=== PATIENT | male | born 1970 | race Caucasian/White ===

== ENCOUNTER 2017-06-17 01:52 | Emergency (ER) | payer MEDICAID, SELFPAY ==
--- NOTE | 2017-06-17 02:04 | XR_ITS ---
XR chest 2V HISTORY: ITS.REASON: chest pain ORDERING PHYSICIAN: Stephen Sandoval MD PATIENT AGE: 47 years COMPARISON: 12/22/2014 FINDINGS: The cardiomediastinal silhouette and pulmonary vascularity are within normal limits. There are old left-sided rib fractures with deformity of the chest and bone plate over the anterior aspect of the left fourth and fifth ribs.. No acute bony abnormalities. IMPRESSION: Old left-sided rib fractures with postsurgical change. No acute finding
[2017-06-17 02:25] VITALS: BP 208/113; PULSE 78; RESP 16; TEMP 36.6; O2SAT 95; BMI 29.0
[2017-06-17 02:37] LABS: Basophils # 0.1 K/mm3 (0-0.2); Basophils % 0.4 % (0.1-2.0); Eosinophils # 0.2 K/mm3 (0.0-0.4); Eosinophils % 1.5 % (0.1-12.0); Hemoglobin 14.4 g/dL (14.1-18.0); Lymphocytes # 1.3 K/mm3 (0.7-4.5); Lymphocytes % 8.3 K/mm3 (10-50); Mean Corpuscular HGB Conc 33.6 g/dL (31.8-35.4); Mean Corpuscular Hemoglobin 30.4 pg (27.0-31.2); Mean Corpuscular Volume 90.5 fl (80-94); Mean Platelet Volume 7.9 fl (7.4-10.4); Monocytes # 0.9 K/mm3 (0.1-1.0); Neutrophils # 13.1 K/mm3 (1.8-7.8); Neutrophils % 83.8 % (37.0-80.0); Platelet Count 241 K/mm3 (142-424); Red Blood Count 4.75 M/mm3 (4.60-6.20); Red Cell Distribution Width 12.9 % (11.5-17.5); White Blood Count 15.7 K/mm3 (4.8-10.8)
[2017-06-17 02:39] LABS: MANUAL DIFFERENTIAL MANUAL DIFFERENTIAL (MANUAL DIFF)
[2017-06-17 02:55] LABS: Microscopic, Urine URINE MICROSCOPIC (MICROSCOPIC)
[2017-06-17 02:58] LABS: Alanine Aminotransferase 26 U/L (12-78); Albumin Level 3.1 gm/dL (3.4-5.0); Albumin/Globulin Ratio 0.7 (1.1-1.8); Alkaline Phosphatase 124 U/L (46-116); Anion Gap 14.9 mEq/L (5-15); Aspartate Amino Transferase 13 U/L (15-37); Bilirubin,Total 0.3 mg/dL (0.2-1.0); Blood Urea Nitrogen 18 mg/dL (7-18); Calcium 9.2 mg/dL (8.5-10.1); Carbon Dioxide 26 mmol/L (21.0-32.0); Chloride 105 mmol/L (98-107); Creatinine Clearance Estimated 124 mL/min (0-300); Creatinine,Serum 1.04 mg/dL (0.70-1.30); Estimated Glomerular Filt Rate 77 ml/min (>60); GFR (African American) 93 ML/MIN (>60); Globulin 4.7 gm/dl (1.3-3.2); Glucose 181 mg/dL (74-106); Potassium 3.9 mmoL/L (3.5-5.1); Sodium 142 mmol/L (136-145); Total Protein,Serum 7.8 gm/dL (6.4-8.2); Troponin I < 0.02 ng/ml (0.00-0.06)
[2017-06-17 03:05] LABS: Strep Scrn Group A (Rapid) Positive (Negative)
[2017-06-17 03:20] LABS: Appearance,Urine CLEAR (Clear); Bilirubin,Urine Negative (Negative); Blood, Urine 3+ (Negative); Color,Urine YELLOW (Yellow); Glucose,Urine (UA) TRACE (Negative); Ketones,Urine TRACE (Negative); Leukocyte Esterase,Urine Negative (Negative); Nitrate,Urine Negative (Negative); Protein,Urine 2+ (Negative); Specific Gravity, Urine >= 1.030 (1.005-1.030)
[2017-06-17 03:29] LABS: Bacteria,Urine 1+ /lpf; Mucus,Urine 1+ /lpf; RBC,Urine 20-50 #/hpf (0-3); Squamous Epithelial Cell,Urine Occasional #/hpf (0-5)
--- NOTE | 2017-06-17 04:03 | HMH.EDGENADL ---
ED Disposition Clinical Impression: Strep pharyngitis Disposition: Home, Self-Care Condition on Discharge: Good Instructions: DI for Strep Throat Additional Instructions: Please drink plenty of fluids, alternate Motrin with Tylenol for fever control and body aches, follow-up with PCP within 12 hours if not better. If unable to see PCP timely and not better please return promptly to this, same, emergency room for reevaluation. Prescriptions: Azithromycin [Z-Russell 250mg Tab] 250 mg PO UD DOSE PK #6 tab Time of Disposition: 04:04 - Critical Care Critical Care Time: No Attestation: On 06/17/17, the high probability of a clinically significant, sudden or life threatening deterioration of the following system(s) required my full and direct attention, intervention and personal management. The time I documented below is in addition to time spent performing reported procedures but includes the following listed in this critical care notation. Medical Decision Making - Medical Records Medical records reviewed: Yes: I reviewed the patient's medical records. Vital Signs: 06/17/17 02:25 06/17/17 04:32 Temperature 97.8 F 98.8 F Temperature Source Oral Oral Pulse Rate 82 Pulse Rate [Left Radial] 78 Respiratory Rate 16 18 Blood Pressure 188/82 Blood Pressure [Right Arm] 208/113 Blood Pressure Mean [Right Arm] 144 Blood Pressure Source Automatic Cuff Blood Pressure Source [Right Arm] Automatic Cuff Blood Pressure Position Supine Blood Pressure Position [Right Arm] Supine 02 Sat by Pulse Oximetry 95 Oxygen Delivery Method Room Air Room Air - Lab Data Lab results reviewed: Yes: I reviewed the patient's lab results. Lab Results 06/17/17 02:30: Sodium 142, Potassium 3.9, Chloride 105, Carbon Dioxide 26, Anion Gap 14.9, BUN 18, Creatinine 1.04, Estimated Creat Clear 124, Estimated GFR 77, Est GFR ( Amer) 93, Glucose 181 H, Calcium 9.2, Total Bilirubin 0.3, AST 13 L, ALT 26, Alkaline Phosphatase 124 H, Troponin I < 0.02, Total Protein 7.8, Albumin 3.1 L, Globulin 4.7 H, Albumin/Globulin Ratio 0.7 L 06/17/17 02:30: WBC 15.7 H, RBC 4.75, Hgb 14.4, Hct 43.0, MCV 90.5, MCH 30.4, MCHC 33.6, RDW 12.9, Plt Count 241, MPV 7.9, Neut % (Auto) 83.8 H, Lymph % (Auto) 8.3 L, [place] % (Auto) 6.0, Eos % (Auto) 1.5, Baso % (Auto) 0.4, Neut # (Auto) 13.1 H, Lymph # (Auto) 1.3, [place] # (Auto) 0.9, Eos # (Auto) 0.2, Baso # (Auto) 0.1, Total Counted 100, Neutrophils % (Manual) 86 H, Lymphocytes % (Manual) 12, Monocytes % (Manual) 2, Platelet Estimate Normal, Hypochromasia 1+, Anisocytosis 1+ 06/17/17 02:30: Influenza Type A Ag Negative, Influenza Type B Ag Negative, Group A Strep Rapid Positive A 06/17/17 02:45: Urine Color Yellow, Urine Appearance Clear, Urine pH 6.0, Ur Specific [place] >= 1.030, Urine Protein 2+, Urine Glucose (UA) Trace, Urine Ketones Trace, Urine Blood 3+, Urine Nitrate Negative, Urine Bilirubin Negative, Urine Urobilinogen 4.0, Ur Leukocyte Esterase Negative, Urine RBC 20-50, Urine WBC 3-5, Ur Squamous Epith Cells Occasional, Urine Bacteria 1+, Urine Mucus 1+ Result diagrams: 06/17/17 02:30 06/17/17 02:30 Orders (Tests/Meds): ED MEDICATIONS Discontinued Medications Generic Name Dose Route Start Last Admin Trade Name Freq PRN Reason Stop Dose Admin Ceftriaxone Sodium 1 gm/ 50 mls @ 100 mls/hr 06/17/17 03:52 06/17/17 03:59 Sodium Chloride IV 06/17/17 04:21 100 mls/hr ONCE ONE Administration Lorazepam 1 mg 06/17/17 04:00 Ativan 2mg/Ml Vial IV 06/17/17 04:01 ONCE ONE ORDERS Category Date Time Status ECG Request by /Elizabeth Stat Y 06/17/17 02:04 Ordered - Radiology Data #1 Image(s): Chest Image Reviewed: Yes I reviewed the patient's radiology results No acute process - ECG Data Tracing #1 I reviewed this ECG and interpreted as documented below: ECG normal with no acute: arrhythmias, ischemia, conduction abnormalities, chamber hypertrophy Normal Sinus
--- NOTE | 2017-06-17 04:07 | ED_ITS ---
ED Disposition Clinical Impression: Strep pharyngitis Disposition: Home, Self-Care Condition on Discharge: Good Instructions: DI for Strep Throat Additional Instructions: Please drink plenty of fluids, alternate Motrin with Tylenol for fever control and body aches, follow-up with PCP within 12 hours if not better. If unable to see PCP timely and not better please return promptly to this, same, emergency room for reevaluation. Prescriptions: Azithromycin [Z-Russell 250mg Tab] 250 mg PO UD DOSE PK #6 tab Time of Disposition: 04:04 - Critical Care Critical Care Time: No Attestation: On 06/17/17, the high probability of a clinically significant, sudden or life threatening deterioration of the following system(s) required my full and direct attention, intervention and personal management. The time I documented below is in addition to time spent performing reported procedures but includes the following listed in this critical care notation. Medical Decision Making - Medical Records Medical records reviewed: Yes: I reviewed the patient's medical records. Vital Signs: 06/17/17 02:25 06/17/17 04:32 Temperature 97.8 F 98.8 F Temperature Source Oral Oral Pulse Rate 82 Pulse Rate [Left Radial] 78 Respiratory Rate 16 18 Blood Pressure 188/82 Blood Pressure [Right Arm] 208/113 Blood Pressure Mean [Right Arm] 144 Blood Pressure Source Automatic Cuff Blood Pressure Source [Right Arm] Automatic Cuff Blood Pressure Position Supine Blood Pressure Position [Right Arm] Supine 02 Sat by Pulse Oximetry 95 Oxygen Delivery Method Room Air Room Air - Lab Data Lab results reviewed: Yes: I reviewed the patient's lab results. Lab Results 06/17/17 02:30: Sodium 142, Potassium 3.9, Chloride 105, Carbon Dioxide 26, Anion Gap 14.9, BUN 18, Creatinine 1.04, Estimated Creat Clear 124, Estimated GFR 77, Est GFR ( Amer) 93, Glucose 181 H, Calcium 9.2, Total Bilirubin 0.3, AST 13 L, ALT 26, Alkaline Phosphatase 124 H, Troponin I < 0.02, Total Protein 7.8, Albumin 3.1 L, Globulin 4.7 H, Albumin/Globulin Ratio 0.7 L 06/17/17 02:30: WBC 15.7 H, RBC 4.75, Hgb 14.4, Hct 43.0, MCV 90.5, MCH 30.4, MCHC 33.6, RDW 12.9, Plt Count 241, MPV 7.9, Neut % (Auto) 83.8 H, Lymph % (Auto ) 8.3 L, [place] % (Auto) 6.0, Eos % (Auto) 1.5, Baso % (Auto) 0.4, Neut # (Auto) 13.1 H, Lymph # (Auto) 1.3, [place] # (Auto) 0.9, Eos # (Auto) 0.2, Baso # (Auto) 0.1, Total Counted 100, Neutrophils % (Manual) 86 H, Lymphocytes % (Manual) 12, Monocytes % (Manual) 2, Platelet Estimate Normal, Hypochromasia 1+, Anisocytosis 1+ 06/17/17 02:30: Influenza Type A Ag Negative, Influenza Type B Ag Negative, Group A Strep Rapid Positive A 06/17/17 02:45: Urine Color Yellow, Urine Appearance Clear, Urine pH 6.0, Ur Specific [place] >= 1.030, Urine Protein 2+, Urine Glucose (UA) Trace, Urine Ketones Trace, Urine Blood 3+, Urine Nitrate Negative, Urine Bilirubin Negative , Urine Urobilinogen 4.0, Ur Leukocyte Esterase Negative, Urine RBC 20-50, Urine WBC 3-5, Ur Squamous Epith Cells Occasional, Urine Bacteria 1+, Urine Mucus 1+ Result diagrams: 06/17/17 02:30 06/17/17 02:30 Orders (Tests/Meds): ED MEDICATIONS Discontinued Medications Generic Name Dose Route Start Last Admin Trade Name Freq PRN Reason Stop Dose Admin Ceftriaxone Sodium 1 gm/ 50 mls @ 100 mls/hr 06/17/17 03:52 06/17/17 03:59 Sodium Chloride IV 06/17/17 04:21 100 mls/hr
[2017-06-17 04:32] VITALS: BP 188/82; PULSE 82; RESP 18; TEMP 37.1; O2SAT 98
[2017-06-17 06:29] LABS: Lymphocytes % 12 % (10-50); Monocytes % 2 % (2-9); Neutrophils % 86 % (42-76); Total Cells Counted 100
[2017-06-17 06:30] LABS: Anisocytosis 1+; Hypochromasia 1+; Platelet Estimate Normal
== END 2017-06-17 04:39 | disposition home or self-care (01) ==
PROVIDERS: Emergency Provider Emergency Medicine
DX: J02.0 Streptococcal pharyngitis (principal); F17.210 Nicotine dependence, cigarettes, uncomplicated; Z88.0 Allergy status to penicillin
CPT/HCPCS: 71046; 80053; 81001; 84484; 85007; 85025; 87275; 87276; 87430; 93005; 93041; 96365; 99283

== ENCOUNTER 2018-03-01 10:41 | Observation (INO) ==
[2018-03-01 11:15] LABS: Basophils % 0.2 % (0.1-2.0); Eosinophils # 0.1 K/mm3 (0.0-0.4); Eosinophils % 1.2 % (0.1-12.0); Hematocrit 51.6 % (42.0-52.0); Hemoglobin 17.6 g/dL (14.1-18.0); Lymphocytes # 1.8 K/mm3 (0.7-4.5); Lymphocytes % 15.2 K/mm3 (10-50); Mean Corpuscular HGB Conc 34.1 g/dL (31.8-35.4); Mean Corpuscular Hemoglobin 31.5 pg (27.0-31.2); Mean Corpuscular Volume 92.3 fl (80-94); Mean Platelet Volume 7.2 fl (7.4-10.4); Monocytes # 0.4 K/mm3 (0.1-1.0); Monocytes % 3.1 % (1.7-9.3); Neutrophils # 9.3 K/mm3 (1.8-7.8); Neutrophils % 80.3 % (37.0-80.0); Platelet Count 258 K/mm3 (142-424); Red Blood Count 5.59 M/mm3 (4.60-6.20); White Blood Count 11.6 K/mm3 (4.8-10.8)
[2018-03-01 11:34] LABS: Albumin/Globulin Ratio 0.9 (1.1-1.8); Anion Gap 12.9 mEq/L (5-15); Bilirubin,Total 0.7 mg/dL (0.2-1.0); Calcium 8.6 mg/dL (8.5-10.1); Globulin 4.3 gm/dl (1.3-3.2); Potassium 3.9 mmoL/L (3.5-5.1); Total Protein,Serum 8.3 gm/dL (6.4-8.2)
--- NOTE | 2018-03-01 11:51 | Emergency Department Note ---
ED Disposition Clinical Impression: Left sided abdominal pain Intractable vomiting Qualifiers: Vomiting type: unspecified Nausea presence: with nausea Qualified Code(s): R11.2 - Nausea with vomiting, unspecified Disposition: Still a Patient Condition on Discharge: Fair Referrals: Provider,Referral, [Primary Care Provider] - - Critical Care Critical Care Time: No Attestation: On 03/01/18, the high probability of a clinically significant, sudden or life threatening deterioration of the following system(s) required my full and direct attention, intervention and personal management. The time I documented below is in addition to time spent performing reported procedures but includes the follow ing listed in this critical care notation. Medical Decision Making - Arie Inquiry Pt receiving controlled substance: Yes Arie was queried for this patient: Yes Reference #:: [id number] Risks and benefits of using a controlled substance: were not discussed with pt by me Comment: 0 rxs. Vital Signs: 03/01/18 10:50 Temperature 98.3 F Temperature Source Oral Pulse Rate [Right Brachial] 72 Respiratory Rate 18 Blood Pressure [Right Arm] 110/75 Blood Pressure Mean [Right Arm] 86 02 Sat by Pulse Oximetry 96 Oxygen Delivery Method Room Air - Lab Data Lab Results 03/01/18 10:55: WBC 11.6 H, RBC 5.59, Hgb 17.6, Hct 51.6, MCV 92.3, MCH 31.5 H, MCHC 34.1, RDW 13.0, Plt Count 258, MPV 7.2 L, Neut % (Auto) 80.3 H, Lymph % (Auto) 15.2, [place] % (Auto) 3.1, Eos % (Auto) 1.2, Baso % (Auto) 0.2, Neut # (Auto) 9.3 H, Lymph # (Auto) 1.8, [place] # (Auto) 0.4, Eos # (Auto) 0.1, Baso # (Auto) 0.0 03/01/18 10:55: Sodium 139, Potassium 3.9, Chloride 101, Carbon Dioxide 29, Anion Gap 12.9, BUN 15, Creatinine 0.85, Estimated Creat Clear 136, Estimated GFR 96, Est GFR ( Amer) 116, Glucose 139 H, Calcium 8.6, Total Bilirubin 0.7, AST 11 L, ALT 18, Alkaline Phosphatase 99, Total Protein 8.3 H, Albumin 4.0, Globulin 4.3 H, Albumin/Globulin Ratio 0.9 L, Amylase 70, Lipase 271 03/01/18 12:15: Urine Color Yellow, Urine Appearance Clear, Urine pH 7.0, Ur Specific [place] 1.015, Urine Protein Trace, Urine Glucose (UA) Negative, Urine Ketones 1+, Urine Blood Negative, Urine Nitrate Negative, Urine Bilirubin Negative, Urine Urobilinogen 1.0, Ur Leukocyte Esterase Trace, Urine RBC Occasional, Urine WBC None, Ur Squamous Epith Cells 3-5, Urine Bacteria Trace, Urine Mucus 2+ 03/01/18 12:15: Urine Opiates Screen Negative, Urine Methadone Screen Negative, Ur Barbituates Screen Negative, Ur Phencyclidine Scrn Negative, Ur Amphetamines Screen Negative, U Benzodiazepines Scrn Negative, Urine Cocaine Screen Negative, U Marijuana (THC) Screen Positive H Result diagrams: 03/01/18 10:55 03/01/18 10:55 Orders (Tests/Meds): ED MEDICATIONS Discontinued Medications Generic Name Dose Route Start Last Admin Trade Name Cele PRN Reason Stop Dose Admin Sodium Chloride 1,000 mls @ 999 mls/hr 03/01/18 11:00 03/01/18 11:02 Sod Chlor 0.9% 1000ml Bag IV 03/01/18 12:00 999 mls/hr .[id number] KURT Administration Iopamidol 75 ml 03/01/18 11:20 03/01/18 11:21 [id number]; 75ml Vial IV 03/01/18 11:21 75 ml ONCE ONE Administration Protocol Ketorolac Tromethamine 30 mg 03/01/18 11:59 03/01/18 12:22 Toradol 30mg/Ml Vial IV 03/01/18 12:00 30 mg ONCE ONE Administration Ondansetron HCl 4 mg 03/01/18 10:57 03/01/18 11:02 Zofran 4mg/2ml Vial IV 03/01/18 10:58 4 mg ONCE ONE Administration Sodium Chloride 10 ml 03/01/18 11:20 03/01/18 11:21 Rad-Saline Flush 10ml Syringe IV 03/01/18 11:21 10 ml ONCE ONE Administration Sodium Chloride 1,000 ml 03/01/18 13:16 03/01/18 13:26 Sod Chlor 0.9% 1000ml Bag IV 03/01/18 13:17 1,000 ml BOLUS ONE Administration ORDERS Category Date Time Status Urinalysis and Microscopic Stat Lab 03/01/18 12:15 Ordered - Physician Consults Physician Consulted: Rm Hernandez Time: 14:20 Reason -: Admission Comment/Response: Agrees to admit the patient to the hospital. We discussed the patient's clinical information, including history, exam, laboratory and radiology results and ED course. Per hospital procedure, I will write temporary bridge inpatient orders on the patient. Specific orders requested by the admitting physician: IV fluids, antiemetics. Okay to give morphine. General Adult HPI - General Chief complaint: Nausea/Vomiting/Diarrhea Stated complaint: vomiting 2 days Time Seen by Provider: 03/01/18 11:50 Mode of Arrival: Wheelchair Limitations: No Limitations Description of Symptoms (Recalled from ER Triage Doc. by RN): nausea and vomiting and can't keep anything downx 2 days. no bm for at least 3 days...maybe longer - History of Present Illness HPI narrative: Poor historian. States 2-day history of left-sided abdominal pain, repetitive vomiting. Unable to keep anything down. No bowel movement for several days. States he had a fever of 102 degrees yesterday. Denies urinary symptoms. Denies any exposures. - Related Data Home Medications Medication Instructions Recorded Confirmed Amantadine HCl [Symmetrel 100mg 1 tab PO DAILY 06/17/17 06/17/17 capsule] Carvedilol [Carvedilol 6.25mg Tab] 1 tab PO BID 06/17/17 06/17/17 Pantoprazole Sodium [Protonix 40mg 1 tab PO DAILY 06/17/17 06/17/17 tablet] Previous Rx's Medication Instructions Recorded Azithromycin [Z-Russell 250mg Tab] 250 mg PO UD DOSE PK #6 tab 06/17/17 Allergies Allergy/AdvReac Type Severity Reaction Status Date / Time penicillin G [PENICILLIN G] Allergy Unknown Verified 06/17/17 02:36 [facility] History I have reviewed the patient's past medical history: Yes Medical History: Denies:: Cancer, Diabetes Mellitus Type 1, Diabetes Mellitus Type 2, MRSA Amputation: No Fractures: No - Social History Educational Level: Completed High School Smoking Status: Unknown if ever smoked # Packs/Day (cigarettes): 1 Alcohol Intake: never Alcohol Intake Frequency:: a few times a week - Psychiatric History Expresses thoughts of harming self/others: None Suicide Plan Description: No Plan ROS Obtained: Yes All systems reviewed & no additional complaints - Constitutional Constitutional: Reports fever(s) - Gastrointestinal Gastrointestingal: Reports: abdominal pain, constipation, vomiting. Denies: diarrhea - Genitourinary Male Genitourinary: Denies difficulty urinating Physical Exam - General General appearance: alert, in no apparent distress Comment: Lying on his right side with an emesis bag in front of his face. - Head Head exam: atraumatic, normocephalic, normal inspection - Eye Eye exam: Present: normal appearance, PERRL, EOMI - ENT ENT exam: Present: mucous membranes dry - Neck Neck exam: Present: normal inspection, full ROM, trachea midline. Absent: meningismus, lymphadenopathy - Chest Chest inspection: Present: normal inspection, symmetric chest wall rise. Absent: tenderness - Respiratory Respiratory exam: Present: normal lung sounds bilaterally. Absent: respiratory distress - Cardiovascular Cardiovascular exam: Present: regular rate, normal rhythm. Absent: JVD - Abdominal Exam Abdominal exam: Present: soft, tenderness, normal bowel sounds. Absent: distention, guarding Abdominal tenderness: Present: LUQ, LLQ - Extremities Exam Extremities exam: Present: normal inspection, full ROM, normal capillary refill. Absent: calf tenderness - Back Exam Back exam: Absent: CVA tenderness (R), CVA tenderness (L) - Neurological Exam Neurological exam: Present: alert, oriented X3 - Psychiatric Psychiatric exam: Present: flat affect - Skin Skin exam: Present: warm, dry, intact, normal color
[2018-03-01 12:20] LABS: Microscopic, Urine URINE MICROSCOPIC (MICROSCOPIC)
[2018-03-01 12:21] LABS: Appearance,Urine CLEAR (Clear); Bilirubin,Urine Negative (Negative); Blood, Urine Negative (Negative); Color,Urine YELLOW (Yellow); Glucose,Urine (UA) Negative (Negative); Ketones,Urine 1+ (Negative); Leukocyte Esterase,Urine TRACE (Negative); Protein,Urine TRACE (Negative); Specific Gravity, Urine 1.015 (1.005-1.030)
[2018-03-01 12:35] LABS: Bacteria,Urine Trace /lpf; Mucus,Urine 2+ /lpf; RBC,Urine Occasional #/hpf (0-3)
[2018-03-01 12:37] LABS: Amphetamine/Metha Screen,Urine Negative ng/mL (<1000); Barbiturates Screen,Urine Negative ng/mL (<200); Benzodiazepines Screen,Urine Negative ng/mL (<200); Cannabinoid Screen,Urine Positive ng/mL (<50); Cocaine Screen,Urine Negative ng/mL (<300); Methadone Screen,Urine Negative ng/mL (<300); Opiate Screen,Urine Negative ng/mL (<300); Phencyclidine Screen,Urine Negative ng/mL (<25)
--- NOTE | 2018-03-01 15:22 | Pharmacy Consult Notes ---
[facility] Pharmacy VTE Monitoring - Patient Demographics Admission date: 03/01/18 Report Date: 03/01/18 Time: 15:22 Allergies/Adverse Reactions: Patient Allergies penicillin G [PENICILLIN G] Allergy (Unknown, Verified 06/17/17 02:36) Height: 1.88 m Weight: 90.718 kg Patient Problems: Current Active Problems Left sided abdominal pain (Acute) Intractable vomiting (Acute) - VTE Risk Labs: VTE Related Lab Results Hgb 17.6 g/dL (14.1-18.0) 03/01/18 10:55 Hct 51.6 % (42.0-52.0) 03/01/18 10:55 Plt Count 258 K/mm3 (142-424) 03/01/18 10:55 BUN 15 mg/dL (7-18) 03/01/18 10:55 Creatinine 0.85 mg/dL (0.70-1.30) 03/01/18 10:55 Estimated Creat Clear 136 mL/min (0-300) 03/01/18 10:55 - Prophylaxis VTE Prophylaxis Ordered?: Yes Types of VTE Prophylaxis: TEDS Knee High Location of Applied Device: Bilateral Lower Extremeties - VTE Diagnosis Confirmed Treatment or plan recommended: Continue Current Treatment
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
[2018-03-02 07:16] LABS: Basophils # 0.1 K/mm3 (0-0.2); Basophils % 0.4 % (0.1-2.0); Eosinophils # 0.4 K/mm3 (0.0-0.4); Eosinophils % 2.6 % (0.1-12.0); Hematocrit 44.1 % (42.0-52.0); Mean Corpuscular HGB Conc 33.9 g/dL (31.8-35.4); Mean Corpuscular Hemoglobin 31.6 pg (27.0-31.2); Mean Corpuscular Volume 93.2 fl (80-94); Mean Platelet Volume 7.2 fl (7.4-10.4); Monocytes # 0.7 K/mm3 (0.1-1.0); Monocytes % 4.7 % (1.7-9.3); Neutrophils # 10.1 K/mm3 (1.8-7.8); Neutrophils % 71.3 % (37.0-80.0); Platelet Count 237 K/mm3 (142-424); Red Blood Count 4.73 M/mm3 (4.60-6.20); Red Cell Distribution Width 13.1 % (11.5-17.5); White Blood Count 14.2 K/mm3 (4.8-10.8)
[2018-03-02 07:24] LABS: Anion Gap 11.9 mEq/L (5-15); Calcium 8.1 mg/dL (8.5-10.1); Potassium 3.9 mmoL/L (3.5-5.1)
[2018-03-02 07:33] LABS: Hemoglobin 14.9 g/dL (14.1-18.0)
== END 2018-03-02 11:10 | disposition home or self-care (01) ==
LOC: ER 10:41 → 2ND 10:41
PROVIDERS: ADMIT Family Medicine; ATTEND Family Medicine
CPT/HCPCS: 36415; 74177; 80048; 80053; 80305; 81001; 82150; 83690; 85025; 96365; 99283; G0378; J2405; Q9967

== ENCOUNTER → 2018-06-28 07:42 | Outpatient (CLI) | payer MEDICARE, MEDICAID, SELFPAY ==
--- NOTE | 2018-06-28 08:00 | CT_ITS ---
CT head/brain wo/w con HISTORY: ITS.REASON: APHASIA CVA ORDERING PHYSICIAN: Khurram Abdalla MD PATIENT AGE: 48 years COMPARISON: 08/13/2015 TECHNIQUE: Axial images obtained without contrast. Brain and bone windows reviewed. All CT scans at the facility use one or more dose reduction, viz: automated exposure control, ma/kV adjustment per patient size (including targeted exams where dose is matched to indication, i.e. head), or iterative reconstruction technique. FINDINGS: No midline shift, mass effect, intracranial hemorrhage, hydrocephalus, or extra-axial fluid collection is evident. Encephalomalacic changes are present in the left frontal area and in the kwok radiata. The calvarium has an unremarkable appearance. No mastoid effusion. There is moderate mucosal thickening of the ethmoid sinuses greater on the right side compared to left side... IMPRESSION: 1. No acute intracranial findings. 2. 

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
--- NOTE | 2018-06-28 08:01 | XR_ITS ---
XR abdomen min 2V HISTORY: ITS.REASON: CONSTIPATION ORDERING PHYSICIAN: Khurram Abdalla MD PATIENT AGE: 48 years COMPARISON: None FINDINGS: Contrast is present in the renal collecting system on both sides. No hydronephrosis or hydroureter. Nonspecific nonobstructive bowel gas pattern. There is mild amount of retained colonic feces. Mild degenerative changes are present in the hips. There is no right eighth rib fracture and there are multiple old left rib fractures as described in the rib detail report. IMPRESSION: As above, no acute finding, mild constipation
== END ==
PROVIDERS: PCP Family Medicine; Visit Provider Family Medicine
DX: I69.320 Aphasia following cerebral infarction (principal); R07.81 Pleurodynia; K59.01 Slow transit constipation
CPT/HCPCS: 70470; 71101; 74019

== ENCOUNTER → 2018-09-11 12:57 | Outpatient (CLI) | payer MEDICARE, MEDICAID, SELFPAY ==
--- NOTE | 2018-09-11 13:01 | FL_ITS ---
FL barium swallow modified: 09/11/2018 1:01 PM CLINICAL HISTORY: Dysphasia ORDERING PHYSICIAN: Khurram Abdalla MD PATIENT AGE: 48 years Comparison: None TECHNIQUE: Patient administered varying consistencies of barium contrast, while viewed in lateral position under real-time fluoroscopy with cine recording. FLUOROSCOPY TIME: 3 minutes and 9 seconds The study was performed in conjunction with speech pathologist. Please see that report & recommendations. FINDINGS: Patient was given varying consistencies of barium. No aspiration or residual penetration. There was some mild pharyngeal residue IMPRESSION: Unremarkable modified barium swallow Please see speech pathologist report and recommendations.
--- NOTE | 2018-09-11 13:45 | HMH.SLMBS2 ---
Speech & Language Evaluation Speech/Language Mod Barium Swallow Start: 09/11/18 13:34 Freq: once Status: Complete Protocol: Document 09/11/18 13:34 CLAYTON (Rec: 09/11/18 13:45 CLAYTON [id number]) MBS Recommendations Diet Dietary Recommendations Regular,Chopped Meats Treatment/Strategies Strategy/Precaution Recommend Sitting Upright (90 deg) Referrals/Other Recommended Referrals GI Consult Other Recommendations Faisal has been not eating much . He reports pain and coughing with eating and drinking and that no consistency or type of food/ drink is better than another. Faisal says he coughs to releive pain and that pain is so severe with swallow that he would rather not eat. It may be necessary to see GI to assess esophageal phase of swallowing. Pt. denies pneumonia. Mod Barium Swallow Impressions Summary and Impressions Oral Phase Impression Moderate Impairment Oral Phase Summary Poor dentition. Food placement on left side of mouth where dentition is better. Pharyngeal Phase Impression Minimal Impairment Pharyngeal Phase Summary Mild pharyngeal residue cleared with thin rinse and second swallow. Speech/Language MBS Assessment/Goals/Plan Assessment Date of Evaluation: 09/11/18 Evaluation Type Initial Certification Assessment/Problems MBS for Dysphagia Does Patient Qualify for Service No Qualify/Failure Comment Faisal did not demonstrate any aspiration during study. Recommend referral to Gastrointerology secondary to pain when swallowing Plan Pt/Guardian verbally ack understanding Yes of dx/prognosis/goals Pt/Guardian verbally ack understanding Yes of/consent to tx prog G -code Required Yes G-CODES ST Current Status [id number] ST Current Status Modifier CI-At least 1% but less than 20% impaired, limited or restricted ST Goal Status [id number] ST Goal Status Modifier CI-At least 1% but less than 20% impaired, limited or restricted Education Instructions prov
== END ==
PROVIDERS: PCP Family Medicine; Visit Provider Family Medicine
DX: R13.14 Dysphagia, pharyngoesophageal phase (principal)
CPT/HCPCS: 70371; 92611

== ENCOUNTER 2018-11-03 10:08 | Outpatient (RCR) | payer MEDICARE, MEDICAID, SELFPAY ==
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
== END 2018-11-03 10:10 | disposition home or self-care (01) ==
LOC: OT 10:08
PROVIDERS: Visit Provider Family Medicine
DX: M79.621 Pain in right upper arm (principal)
CPT/HCPCS: 97166

== ENCOUNTER 2019-02-21 12:20 | Observation (INO) ==
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
[2019-02-21 13:54] LABS: Basophils # 0.1 K/mm3 (0-0.2); Basophils % 0.9 % (0.1-2.0); Eosinophils # 0.6 K/mm3 (0.0-0.4); Eosinophils % 6.1 % (0.1-12.0); Hematocrit 45.8 % (42.0-52.0); Hemoglobin 14.3 g/dL (14.1-18.0); Lymphocytes # 2.3 K/mm3 (0.7-4.5); Lymphocytes % 22.3 % (10-50); Mean Corpuscular HGB Conc 31.3 g/dL (31.8-35.4); Mean Corpuscular Volume 93.8 fl (80-94); Mean Platelet Volume 8.4 fl (7.4-10.4); Monocytes # 0.5 K/mm3 (0.1-1.0); Monocytes % 4.8 % (1.7-9.3); Neutrophils # 6.7 K/mm3 (1.8-7.8); Neutrophils % 65.9 % (37.0-80.0); Platelet Count 295 K/mm3 (142-424); Red Blood Count 4.88 M/mm3 (4.60-6.20); Red Cell Distribution Width 13.8 % (11.5-17.5); White Blood Count 10.1 K/mm3 (4.8-10.8)
[2019-02-21 13:57] LABS: Anion Gap 14.2 mEq/L (5-15); C-Reactive Protein 0.9 mg/dL (0.0-0.9); Calcium 8.8 mg/dL (8.5-10.1)
[2019-02-21 14:03] LABS: Microscopic, Urine URINE MICROSCOPIC (MICROSCOPIC)
[2019-02-21 14:08] LABS: Appearance,Urine CLEAR (Clear); Bilirubin,Urine Negative (Negative); Blood, Urine Negative (Negative); Color,Urine YELLOW (Yellow); Glucose,Urine (UA) 3+ (Negative); Ketones,Urine Negative (Negative); Leukocyte Esterase,Urine Negative (Negative); Protein,Urine Negative (Negative); Urobilinogen,Urine 0.2 EU/dl (0.2)
[2019-02-21 14:15] LABS: Amphetamine/Metha Screen,Urine Positive ng/mL (<1000); Barbiturates Screen,Urine Negative ng/mL (<200); Benzodiazepines Screen,Urine Negative ng/mL (<200); Cannabinoid Screen,Urine Negative ng/mL (<50); Cocaine Screen,Urine Negative ng/mL (<300); Methadone Screen,Urine Negative ng/mL (<300); Opiate Screen,Urine Negative ng/mL (<300); Phencyclidine Screen,Urine Negative ng/mL (<25)
[2019-02-21 14:49] LABS: Bacteria,Urine Trace /lpf
[2019-02-21 14:50] LABS: Erythrocyte Sedimentation Rate 14 mm/hr (0-15)
[2019-02-21 14:55] LABS: VBG Base Excess -1.1 mmol/L (-2.4-2.3); VBG HCO3 24.6 mmol/L (23-30); VBG Oxygen Saturation 89.6 % (50-70); VBG PCO2 46.4 mmol/L (35-51); VBG PH 7.34 mmol/L (7.31-7.41); VBG Total CO2 26.1 mmol/L (23-27)
--- NOTE | 2019-02-22 07:20 | History & Physical Report ---
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 Patient was unable to ambulate at home due to the level of pain and the additional weakness in his leg. He presented to the emergency department. He also apparently had one episode of urinary incontinence as well. Patient underwent work-up in the emergency department that included a CT of the lumbar spine which showed some degenerative changes at L4-5. Patient had an MRI approximately 8 years ago which showed a herniated disc at L4-5 with disc herniation to the left. Patient denies any activity that he believes could have injured his back. This morning patient continues to have decreased sensation in the left leg, especially below the knee. He also continues to have back pain. 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, L4-L5 disc herniation Other Surgeries: No: Pacemaker Amputation: No Fractures: No - *Social History Educational Level: Completed High School Smoking Status: Current every day smoker Tobacco Type: cigarettes # Packs/Day (cigarettes): 1 #Yrs smoked (if former smoker): 30 Alcohol Intake: never Alcohol Intake Frequency:: a few times a week *Occupational Status:: disabled Housing: apartment Household Members: spouse *Travel in the last 8 weeks: None Family Hx:: Cancer Review of Systems - *Cardiovascular Denies chest pain - *Respiratory Denies chest congestion, Denies cough, Denies shortness of breath - *Gastrointestinal Denies abdominal pain - *Genitourinary Reports difficulty urinating - *Musculoskeletal Reports abnormal walking, Reports decreased muscle mass, Reports limited joint movement, Reports muscle weakness, Denies joint swelling - *Neurologic Reports abnormal walking, Reports numbness, Reports radiating pain, Reports sensory deficit, Reports weakness Meds Home Medications Medication Instructions Recorded Confirmed Type Gabapentin [Gabapentin 400mg Cap] 400 mg PO BID 11/10/18 02/21/19 History Lisinopril [Lisinopril 40mg Tablet] 40 mg PO DAILY 11/10/18 02/21/19 History Metformin HCl [Metformin HCl ER] 500 mg PO DAILY 11/10/18 02/21/19 History Pantoprazole Sodium [Protonix 40mg 40 mg PO DAILY 11/10/18 02/21/19 History tablet] Allergies Allergy/AdvReac Type Severity Reaction Status Date / Time penicillin G [PENICILLIN G] Allergy Unknown Verified 11/08/18 09:46 Exam Vital signs and Labs for Last 24 Hours: Temp Pulse Resp BP Pulse Ox 98.1 F 63 14 104/53 L 97 02/22/19 04:00 02/22/19 04:00 02/22/19 04:00 02/22/19 04:00 02/22/19 04:00 Laboratory Results - last 24 hr 02/21/19 13:26: WBC 10.1, RBC 4.88, Hgb 14.3, Hct 45.8, MCV 93.8, MCH 29.3, MCHC 31.3 L, RDW 13.8, Plt Count 295, MPV 8.4, Neut % (Auto) 65.9, Lymph % (Auto) 22.3, [place] % (Auto) 4.8, Eos % (Auto) 6.1, Baso % (Auto) 0.9, Neut # (Auto) 6.7, Lymph # (Auto) 2.3, [place] # (Auto) 0.5, Eos # (Auto) 0.6 H, Baso # (Auto) 0.1, ESR 14 02/21/19 13:26: Sodium 131 L, Potassium 4.2, Chloride 95 L, Carbon Dioxide 26, Anion Gap 14.2, BUN 16, Creatinine 0.86, Estimated Creat Clear 143, Estimated GFR 95, Est GFR ( Amer) 114, Glucose 512 H*, Calcium 8.8, C-Reactive Protein 0.9 02/21/19 13:26: Urine Color Yellow, Urine Appearance Clear, Urine pH 6.0, Ur Specific [place] 1.010, Urine Protein Negative, Urine Glucose (UA) 3+, Urine Ketones Negative, Urine Blood Negative, Urine Nitrate Negative, Urine Bilirubin Negative, Urine Urobilinogen 0.2, Ur Leukocyte Esterase Negative, Urine Bacteria Trace 02/21/19 13:26: Urine Opiates Screen Negative, Urine Methadone Screen Negative, Ur Barbituates Screen Negative, Ur Phencyclidine Scrn Negative, Ur Amphetamines Screen Positive H, U Benzodiazepines Scrn Negative, Urine Cocaine Screen Negative, U Marijuana (THC) Screen Negative 02/21/19 13:26: Acetone Level None detected 02/21/19 14:07: VBG pH 7.34, VBG pCO2 46.4, VBG pO2 58.0 H, VBG HCO3 24.6, VBG Total CO2 26.1, VBG O2 Saturation 89.6 H, VBG Base Excess -1.1 02/21/19 21:07: POC Glucose 451 H* 02/22/19 05:42: POC Glucose 186 H I & O for Last 24 hours: Intake & Output 02/19/19 02/20/19 02/21/19 02/22/19 11:59 11:59 11:59 11:59 Intake Total 784 / 784 Balance 784 / 784 Weight 216 lb - Constitutional no acute distress - *Routine HEENT Exam Head: Present: normocephalic Eye: Present: PERRL ENT: Present: mucous membranes moist - *Routine Respiratory Exam Present: CTA bilaterally - *Routine Cardiovascular Exam Present: RRR, Normal S1, Normal S2 - *Routine Abdominal Exam Present: soft, normoactive bowel sounds - *Routine Extremities Exam Comments: Patient has weakness of left hip flexors as well as left knee flexion and extension. Difficult to discern whether this is secondary to pain or specific neurologic compromise. Does have absent sensation in the medial calf of the left leg extending down to the foot. Assessment and Plan (1) Acute left lumbar radiculopathy Current visit: Yes Status: Acute Category: Medical Code(s): M54.16 - Radiculopathy, lumbar region MRI today. Solu-medrol 1000mg IV x1 (2) Diabetes mellitus with hyperglycemia, without long-term current use of insulin Current visit: Yes Status: Acute Category: Medical Code(s): E11.65 - Type 2 diabetes mellitus with hyperglycemia Continue Metformin. Lantus 10 units sc this a.m. plus sliding scale insulin. PT eval this afternoon
--- NOTE | 2019-02-22 07:25 | Pharmacy Consult Notes ---
[facility] Pharmacy VTE Monitoring - Patient Demographics Admission date: 02/22/19 Report Date: 02/22/19 Time: 07:25 Allergies/Adverse Reactions: Patient Allergies penicillin G [PENICILLIN G] Allergy (Unknown, Verified 11/08/18 09:46) Height: 1.85 m Weight: 97.976 kg Patient Problems: Current Active Problems Low back pain (Acute) Left leg pain (Acute) Left leg numbness (Acute) Hyperglycemia (Acute) Acute left lumbar radiculopathy (Acute) Diabetes mellitus with hyperglycemia, without long-term current use of insulin (Acute) - VTE Risk Labs: VTE Related Lab Results Hgb 14.3 g/dL (14.1-18.0) 02/21/19 13:26 Hct 45.8 % (42.0-52.0) 02/21/19 13:26 Plt Count 295 K/mm3 (142-424) 02/21/19 13:26 BUN 16 mg/dL (7-18) 02/21/19 13:26 Creatinine 0.86 mg/dL (0.70-1.30) 02/21/19 13:26 Estimated Creat Clear 143 mL/min (50-200) 02/21/19 13:26 Was VTE Risk Assessment Performed: Yes VTE Score: 4 VTE Risk Level: Low Risk Clinical Trial Participant: No - Prophylaxis VTE Prophylaxis Ordered?: Yes Types of VTE Prophylaxis: TEDS Knee High
--- NOTE | 2019-02-23 07:08 | Progress Note ---
Internal Medicine - PN: Subj *Date: 02/23/19 *Time: 07:04 Interval history: Patient has no new complaints this morning. Intensity of pain is fluctuated overnight from a high of 10 out of 10 in his lower back to 4 out of 10. He continues to have numbness in the medial left calf. MRI yesterday showed L4-5 broad-based disc protrusion with abutment of the S1 nerve root. Patient continues to have weakness in the left leg in addition to the sensory deficit. He has been urinating without difficulty Exam Vital signs and Labs for Last 24 Hours: Temp Pulse Resp BP Pulse Ox 97.9 F 64 16 126/77 96 02/23/19 04:00 02/23/19 04:00 02/23/19 04:00 02/23/19 04:00 02/23/19 04:00 Laboratory Results - last 24 hr 02/22/19 11:13: POC Glucose 277 H 02/22/19 16:33: POC Glucose 405 H* 02/22/19 20:59: Random Glucose 511 H* I & O for Last 24 hours: Intake & Output 02/20/19 02/21/19 02/22/19 02/23/19 11:59 11:59 11:59 11:59 Intake Total 1264 / 1264 633 / 633 Output Total 575 / 575 Balance 1264 / 1264 58 / 58 Weight 216 lb 216 lb Narrative: Patient is sitting comfortably in bed. Medial left calf lacks sensation this morning. Sensation is present in the plantar surface of the foot lateral lower leg and thigh. Patient has some intact range of motion in the hip and knee but exam is limited by pain from his back Assessment and Plan (1) Acute left lumbar radiculopathy Current visit: Yes Status: Acute Category: Medical Code(s): M54.16 - Radiculopathy, lumbar region (2) Diabetes mellitus with hyperglycemia, without long-term current use of insul in Current visit: Yes Status: Acute Category: Medical Code(s): E11.65 - Type 2 diabetes mellitus with hyperglycemia (3) Protrusion of lumbar intervertebral disc Current visit: Yes Status: Acute Category: Medical Code(s): M51.26 - Other intervertebral disc displacement, lumbar region - Assessment and plan all Dx Assessment and Plan for all problems:: Patient will be discharged home today to continue a weeklong course of steroid. Glipizide will be added to his diabetic regimen. Patient's gabapentin will be refilled and he will be given narcotic-based pain medication
--- NOTE | 2019-02-23 07:12 | Discharge Summary ---
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 Patient was unable to ambulate at home due to the level of pain and the additional weakness in his leg. He presented to the emergency department. He also apparently had one episode of urinary incontinence as well. Patient underwent work-up in the emergency department that included a CT of the lumbar spine which showed some degenerative changes at L4-5. Patient had an MRI approximately 8 years ago which showed a herniated disc at L4-5 with disc herniation to the left. Patient denies any activity that he believes could have injured his back. This morning patient continues to have decreased sensation in the left leg, especially below the knee. He also continues to have back pain. It is noted in the ER record back pain had decreased in intensity by the time of decision to admit Hospital Course Hospital Course: Patient was admitted for observation. He was given Toradol, gabapentin, and PRN morphine for pain. Patient seemed to respond well to Toradol. Morphine had to be used infrequently. By the morning following admission patient's back pain overall was better although still quite intense and he continued to have sensory deficit in the left lower medial leg. He had diminished range of motion, mostly secondary to pain. MRI of the lumbar spine was performed which showed a broad- based disc protrusion at L4-5 with abutment of the S1 nerve root. Patient was given 1 g of Solu-Medrol on the morning of February 22. This raises blood sugars and he was given sliding scale insulin coverage as needed. Patient's pain continued to decrease very slowly overall in his back. On the morning of the February 23 he was given an additional gram of Solu-Medrol. Patient was then discharged home. Patient has a wheelchair and a power wheelchair at home to use as needed. He will be continued on gabapentin and given [place] 7-1/2 mg for pain. While patient tolerated Toradol intravenously very well due to some ongoing GI issues oral anti-inflammatories will be avoided. He will continue his metformin for his diabetes and a sulfonylurea will be added on while he is on steroids. My office will refer patient to neurosurgery. Objective Vital signs: Temp Pulse Resp BP Pulse Ox 97.9 F 64 16 126/77 96 02/23/19 04:00 02/23/19 04:00 02/23/19 04:00 02/23/19 04:00 02/23/19 04:00 Results Labs on day of discharge: Labs from last 24 hours 02/22/19 02/22/19 02/22/19 20:59 16:33 11:13 POC Glucose 405 H* 277 H Random Glucose 511 H* DS: Diagnosis - Discharge Diagnosis (1) Acute left lumbar radiculopathy Status: Acute (2) Diabetes mellitus with hyperglycemia, without long-term current use of insulin Status: Acute (3) Protrusion of lumbar intervertebral disc Status: Acute Discharge Plan - Patient Discharge Instructions ACTIVITY: Continue current activity DIET: continue same diet Patient Instructions: DI for Low Back Pain, DI for Diabetes Type 2, DI for Hyperglycemia -- Adult - Follow up Plan Follow up with: Khurram Abdalla MD [Primary Care Provider] - 1 week Disposition: Home, Self-[facility] Medications: Home Medications Medication Instructions Recorded Confirmed Type Lisinopril [Lisinopril 40mg Tablet] 40 mg PO DAILY 11/10/18 02/21/19 History Metformin HCl [Metformin HCl ER] 500 mg PO DAILY 11/10/18 02/22/19 History Pantoprazole Sodium [Protonix 40mg 40 mg PO DAILY 11/10/18 02/21/19 History tablet] Gabapentin [Gabapentin 400mg Cap] 400 mg PO TID #90 cap 02/23/19 Rx Hydrocodone/Acetaminophen [[place] 1 tab PO QID PRN #60 tab 02/23/19 Rx 7.5-325 Tablet] Metformin HCl [Metformin HCl ER] 2 tab PO DAILY #60 tab.er.24h 02/23/19 Rx glipiZIDE [Glipizide] 5 mg PO BID #30 tab 02/23/19 Rx Prescriptions/Medication Reconciliation: New Hydrocodone/Acetaminophen [[place] 7.5-325 Tablet] 1 tab PO QID PRN #60 tab PRN Reason: Moderate To Severe Pain glipiZIDE [Glipizide] 5 mg PO BID #30 tab Metformin HCl [Metformin HCl ER] 2 tab PO DAILY #60 tab.er.24h Continued Pantoprazole Sodium [Protonix 40mg tablet] 40 mg PO DAILY Lisinopril [Lisinopril 40mg Tablet] 40 mg PO DAILY Changed Gabapentin [Gabapentin 400mg Cap] 400 mg PO TID #90 cap Discontinued Metformin HCl [Metformin HCl ER] 500 mg PO DAILY - Problem Reconciliation Problems Reviewed?: Yes
== END 2019-02-23 09:34 | disposition home or self-care (01) ==
LOC: ER 12:20 → 2ND 12:20
PROVIDERS: ADMIT Emergency Medicine; ATTEND Family Medicine
CPT/HCPCS: 36415; 72131; 72148; 76376; 80048; 80305; 81001; 82009; 82803; 82947; 82962; 85025; 85651; 86140; 96365; 96375; 99284; G0378; J0595

== ENCOUNTER 2020-01-01 11:00 | Outpatient (RCR) | payer MEDICARE, MEDICAID, SELFPAY ==
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
== END 2020-01-01 11:48 | disposition home or self-care (01) ==
LOC: OT 11:00
PROVIDERS: PCP Family Medicine; Visit Provider Family Medicine
DX: G56.02 Carpal tunnel syndrome, left upper limb (principal)
CPT/HCPCS: 97014; 97035; 97110; 97140; 97165; G0283

== ENCOUNTER 2020-01-23 10:00 | Outpatient (RCR) | payer MEDICARE, MEDICAID, SELFPAY | END 2020-01-23 12:00 | disposition home or self-care (01) | LOC: OT 10:00 | PROVIDERS: PCP Family Medicine; Visit Provider Family Medicine | DX: I69.361 Other paralytic syndrome following cerebral infarction affecting right dominant side (principal) | CPT/HCPCS: 97542 ==

== ENCOUNTER → 2020-11-21 11:09 | Outpatient (CLI) | payer MEDICARE, MEDICAID, SELFPAY ==
--- NOTE | 2020-11-21 11:13 | MR_ITS ---
PROCEDURE: MR LUMBAR SPINE WO CON CLINICAL INDICATION: LUMBAGO WITH SCIATICA Bilateral leg pain and numbness and tingling COMPARISON: No exams were available for comparison TECHNIQUE: Standard multiplanar multiecho sequences are performed without contrast. 3-D MIP and myelographic images are also rendered and reviewed FINDINGS: There is normal alignment. The spinal cord ends at the L1 level. T11-T12: Minimal bulging disc with mild degenerative disc disease. Endplate hypertrophic change T12-L1: Unremarkable. L1-L2: Unremarkable. L2-L3: Unremarkable. L3-L4: Unremarkable. L4-5: Bulging disc with disc desiccation. There is a broad-based bulging disc eccentric toward the right. Broad-based small central disc protrusion once again noted slightly eccentric toward the left similar to the previous exam. The disc abuts the anterior aspect of the L5 nerve roots bilaterally similar to the previous exam. Small annular tear suspected. L5-S1: Mild bulging disc. IMPRESSION: Overall no significant change from 02/22/2019. Bulging disc at L4-5 with small central disc protrusion as described above similar when compared to the previous study. No extruded herniated disc apparent Dictated by: Faraz Harris MD 11/21/2020 14:08 Faraz Harris MD in [place] 11/21/2020 14:08
== END ==
PROVIDERS: PCP Family Medicine; Visit Provider Family Medicine
DX: M54.16 Radiculopathy, lumbar region (principal); M54.42 Lumbago with sciatica, left side; G89.29 Other chronic pain
CPT/HCPCS: 72148; 76376

== ENCOUNTER → 2020-12-11 11:12 | Outpatient (POV) | payer MEDICARE, MEDICAID, SELFPAY | PROVIDERS: Visit Provider Audiologist | DX: Z00.00 Encounter for general adult medical examination without abnormal findings (principal) ==

== ENCOUNTER → 2021-01-08 09:28 | Outpatient (POV) | payer MEDICARE, MEDICAID, SELFPAY | PROVIDERS: Visit Provider Audiologist | DX: Z00.00 Encounter for general adult medical examination without abnormal findings (principal) ==

== ENCOUNTER → 2021-01-14 10:55 | Outpatient (CLI) | payer MEDICARE, MEDICAID, SELFPAY ==
--- NOTE | 2021-01-14 | US_ITS ---
APPROVED REPORT Exam Type: Lower Extremity Segmental Pressures Pattern Scratcher: DANUTA Delgado Claudication: Bilaterally Limb Pain: Bilateral Rest Pain: Bilaterally Current Smoker Risk Factors Hypertension Hyperlipidemia TIA/CVA History Diabetes Current Smoker Findings Rt. RICKY: 0.98 Lt. RICKY: 1.22 Rt. TBI 1.10 Lt. TBI: 1.21 Normal pulses and waveforms noted bilaterally. Conclusion Rt. RICKY: 0.98 Lt. RICKY: 1.22 Rt. TBI 1.10 Lt. TBI: 1.21 Normal pulses and waveforms noted bilaterally. Normal appearing resting noninvasive lower extremity arterial study. Electronically signed by : Faraz Harris MD 01/14/2021 15:54:16
== END ==
PROVIDERS: PCP Family Medicine; Visit Provider Family Medicine
DX: I70.211 Atherosclerosis of native arteries of extremities with intermittent claudication, right leg (principal)
CPT/HCPCS: 93923

== ENCOUNTER 2022-07-05 15:51 | Emergency (ER) | payer MEDICARE, MEDICAID, SELFPAY ==
[2022-07-05] VITALS (8 sets, daily range): BP systolic 83–110; BP diastolic 44–72; PULSE 72–98; RESP 16–19; TEMP 36.8; O2SAT 95–98; BMI 27.7
--- NOTE | 2022-07-05 15:57 | PC.NURSE ---
Linda Brito, step-daughter, , called for update
[2022-07-05 16:23] LABS: Basophils # 0.2 K/mm3 (0-0.2); Basophils % 1.4 % (0.1-2.0); Eosinophils # 0.9 K/mm3 (0.0-0.4); Eosinophils % 7.9 % (0.1-12.0); Hematocrit 44.9 % (42.0-52.0); Hemoglobin 15.5 g/dL (14.1-18.0); Lymphocytes # 1.9 K/mm3 (0.7-4.5); Lymphocytes % 16.3 % (10-50); Mean Corpuscular HGB Conc 34.5 g/dL (31.8-35.4); Mean Corpuscular Hemoglobin 30.3 pg (27.0-31.2); Mean Corpuscular Volume 87.9 fl (80-94); Mean Platelet Volume 9.1 fl (7.4-10.4); Monocytes # 0.4 K/mm3 (0.1-1.0); Monocytes % 3.8 % (1.7-9.3); Neutrophils % 70.6 % (37.0-80.0); Platelet Count 290 K/mm3 (142-424); Red Cell Distribution Width 13.4 % (11.5-17.5); White Blood Count 11.4 K/mm3 (4.8-10.8)
[2022-07-05 16:24] LABS: Chloride 100 mmol/L (98-107); Potassium 4.1 mmoL/L (3.5-5.1); Sodium 132 mmol/L (136-145)
[2022-07-05 16:26] LABS: Alanine Aminotransferase 27 U/L (12-78); Aspartate Amino Transferase 26 U/L (17-59); Blood Urea Nitrogen 17 mg/dl (9-20); Creatinine Clearance Estimated 194 mL/min (50-200); Estimated Glomerular Filt Rate 141 ml/min (>60); GFR (African American) 171 ML/MIN (>60)
[2022-07-05 16:27] LABS: Albumin Level 4.1 g/dl (3.5-5.0); Albumin/Globulin Ratio 1.4 (1.1-1.8); Alkaline Phosphatase 98 U/L (38-126); Anion Gap 9.1 mEq/L (5-15); Bilirubin,Total 0.5 mg/dl (0.2-1.3); Calcium 8.9 mg/dl (8.4-10.2); Carbon Dioxide 27 mmol/L (22.0-30.0); Lactic Acid 1.7 mmol/L (0.7-2.1); Total Protein,Serum 7.1 g/dl (6.3-8.2)
[2022-07-05 16:29] LABS: Glucose 442 mg/dl (74-100)
--- NOTE | 2022-07-05 17:15 | CT_ITS ---
PROCEDURE INFORMATION: Exam: CT Head Without Contrast Exam date and time: 07/05/2022 5:44 PM Age: 52 years old Clinical indication: Weakness, extremity; Bilateral; Additional info: Weak TECHNIQUE: Imaging protocol: Computed tomography of the head without contrast. Radiation optimization: All CT scans at this facility use at least one of these dose optimization techniques: automated exposure control; mA and/or kV adjustment per patient size (includes targeted exams where dose is matched to clinical indication); or iterative reconstruction. REPORTING DATA: Count of CT and Cardiac NM exams in prior 12 months: This patient has received 0 known CTs and 0 known cardiac nuclear medicine studies in the 12 months prior to the current study. COMPARISON: CT HEAD/BRAIN WO CON 06/27/2019 11:40 AM FINDINGS: Brain: Mild-moderate generalized cerebral/cerebellar atrophy. The IACs are grossly normal. No extra-axial fluid collections. No evidence of acute intracranial hemorrhage. No CT evidence of large territory acute or subacute intracranial ischemia/infarct. 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 No intracranial mass lesions. Cerebral ventricles: Mild compensatory ventriculomegaly secondary to central atrophy. Further compensatory expansion of the frontal horn and body of the left lateral ventricle related to adjacent chronic leukomalacia. Mild chronic leftward midline shift at the septum pellucidum of approximately 3 mm which is unchanged from 2020, related to left frontal volume loss. Pituitary gland and sella: The sella is grossly normal. Paranasal sinuses: Mucosal thickening in the inferior left maxillary sinus and opacified right posterior ethmoid air cell consistent with mild changes of chronic sinusitis. No fluid levels. Mastoid air cells: Visualized mastoid air cells are clear. Orbital cavities: No acute intraorbital findings. Bones/joints: The calvarium and visualized facial bones are intact. Soft tissues: The scalp and visualized soft tissues demonstrate no acute abnormality. Vasculature: Mild-moderate calcific atherosclerosis. No asymmetric vascular hyperdensities suggestive of thrombosis are identified. Other findings: Lindsey-white matter differentiation is well maintained. IMPRESSION: No acute intracranial process. No intracranial hemorrhage or positive mass effect. No significant change from 06/27/2019.
--- NOTE | 2022-07-05 17:15 | XR_ITS ---
PROCEDURE INFORMATION: Exam: XR Chest Exam date and time: 07/05/2022 5:53 PM Age: 52 years old Clinical indication: Other: Weakness; Additional info: Weak TECHNIQUE: Imaging protocol: Radiologic exam of the chest. Views: 1 view. COMPARISON: DX [id number] XR ribs LT min 3V w [id number] 06/28/2018 8:11 AM FINDINGS: Lungs: Mild bilateral apical hyperlucency suspicious for mild emphysematous changes. Pulmonary vasculature grossly normal. No gross pulmonary infiltrates or edema pattern. Minimal linear scarring or subsegmental atelectasis in the lung bases. Pleural spaces: No pleural effusion. No pneumothorax. Heart/Mediastinum: Heart size normal. No tracheal/mediastinal shift. Bones/joints: No acute osseous abnormalities are identified. Old left upper rib fractures with prior left anterolateral malleable plate fixation of the 4th and 5th ribs. No gross hardware complication or change. IMPRESSION: 1. No acute findings. 2. Emphysematous changes. 3. Chronic left rib fractures with prior plate fixations demonstrating no gross hardware complication or change.
--- NOTE | 2022-07-05 17:18 | HMH.EDGENADL ---
Discharge Plan Disposition Patient Disposition: Home, Self-Care Condition: Good Prescriptions Prescriptions: No Action glipizide 10 MG tablet 5 mg PO BID Qty: 30 0RF hydrocodone-acetaminophen 1 EACH tablet 1 tab PO QID PRN (Reason: Moderate To Severe Pain) Qty: 60 0RF metformin 500 MG tablet extended release 24 hr 2 tab PO DAILY Qty: 60 0RF gabapentin 400 MG capsule 400 mg PO TID Qty: 90 1RF pantoprazole 40 MG tablet,delayed release (DR/EC) 40 mg PO DAILY lisinopril 40 MG tablet 40 mg PO DAILY Referrals Follow up/Referrals: Provider,Referral, MD [Primary Care Provider] - See instructions Activity Restrictions/Add. Instructions Additional Instructions/Restrictions: Increase glipizide to 10 mg in the morning and 5 mg at bedtime and have your blood sugar rechecked later this week by primary care provider. Drink plenty of water. Clinical Impressions Clinical Impression: Acute hyperglycemia Instructions Patient Instructions: DI for Hyperglycemia -- Adult Discharge ED Provider: Tip Jackson General Adult HPI General Chief complaint: Hyper/Hypoglycemia Stated complaint: Hyperglycemia Time Seen by Provider: 07/05/22 17:07 Mode of Arrival: EMS Source of Information: Patient Limitations: No Limitations Description of Symptoms (Recalled from ER Triage Doc. by RN): Pt reports high blood sugar, EMS 479 fsbs en route; pt also reports malaise x2, Headache, green poop , denies Abd pain, N/V History of Present Illness HPI narrative: Patient presents with 2 to 3 days of generalized malaise he also complains of headache. He does have prior history of stroke with residual right hemiparesis. He describes symptoms as mild to moderate without exacerbating alleviating factors Related Data Home Medications Medication Instructions Recorded Confirmed lisinopril 40 mg tablet 40 mg PO DAILY BLOOD PRESSURE 11/10/18 02/21/19 pantoprazole 40 mg tablet,delayed 40 mg PO DAILY GERD 11/10/18 02/21/19 release Previous Rx's Medication Instructions Recorded gabapentin 400 mg capsule 400 mg PO TID leg/back pain #90 02/23/19 caps glipizide 10 mg tablet 5 mg PO BID #30 tabs 02/23/19 hydrocodone 7.5 mg-acetaminophen 1 tab PO QID PRN Moderate To 02/23/19 325 mg tablet Severe Pain #60 tabs metformin 500 mg tablet,extended 2 tab PO DAILY ##60 02/23/19 release 24 hr Allergies Allergy/AdvReac Type Severity Reaction Status Date / Time penicillin G [PENICILLIN G] Allergy Unknown Verified 11/08/18 09:46 [facility] Disclaimer: The information contained in this section may have been updated after the patient was seen, as this information can be updated by other users. Social History Smoking Status: Current every day smoker tobacco type: cigarettes packs per day: 1 second hand exposure: Yes alcohol intake: never current occupational status: disabled Travel in the last 8 weeks: None household members: spouse housing: apartment caffeine: No ROS Obtained: Yes All systems reviewed & no additional complaints except as documented Physical Exam General General appearance: alert and in no apparent distress Head Head exam: atraumatic, normocephalic and normal inspection Eye Eye exam: Present normal appearance, PERRL and EOMI ENT ENT exam: Present normal exam, normal oropharynx, mucous membranes moist, TM's normal bilaterally and normal external ear exam Neck Neck exam: Present normal inspection, full ROM and trachea midline; Absent meningismus or lymphadenopathy Chest Chest inspection: Present normal inspection and symmetric chest wall rise; Absent tenderness Respiratory Respiratory exam: Present normal lung sounds bilaterally; Absent respiratory distress Cardiovascular Cardiovascular exam: Present regular rate and normal rhythm; Absent JVD Abdominal Exam Abdominal exam: Present soft and normal bowel sounds; Absent distention,
[2022-07-05 17:45] LABS: Appearance,Urine CLEAR (Clear); Bilirubin,Urine Negative (Negative); Blood, Urine Negative (Negative); Color,Urine YELLOW (Yellow); Glucose,Urine (UA) 3+ (Negative); Ketones,Urine Negative (Negative); Leukocyte Esterase,Urine Negative (Negative); Microscopic, Urine URINE MICROSCOPIC (MICROSCOPIC); Nitrate,Urine Negative (Negative); PH,Urine 5.5 (5.0-8.5); Protein,Urine Negative (Negative); Urobilinogen,Urine 0.2 EU/dl (0.2)
--- NOTE | 2022-07-05 17:47 | PC.NURSE ---
pt back from [place]
[2022-07-05 17:57] LABS: Troponin I < 0.01 ng/ml (0.00-0.034)
[2022-07-05 18:25] LABS: WBC,Urine Occasional #/hpf (0-3)
[2022-07-05 19:37] LABS: POC Glucose,Bedside 223 (70-110)
== END 2022-07-05 19:42 | disposition home or self-care (01) ==
PROVIDERS: Emergency Provider Emergency Medicine
DX: R73.9 Hyperglycemia, unspecified (principal); I69.351 Hemiplegia and hemiparesis following cerebral infarction affecting right dominant side; F17.210 Nicotine dependence, cigarettes, uncomplicated
CPT/HCPCS: 70450; 71045; 80053; 81001; 82962; 83605; 84484; 85025; 96361; 96374; 99285